=== PATIENT | male | born 2000 | race Caucasian/White ===

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

== ENCOUNTER 2018-01-03 09:26 | Emergency (ER) | payer OTHER ==
[~2018-01-03] VITALS: Ht 180.3 cm; Wt 140.6 kg
[~2018-01-03 09:26] MED LIST: ALBU0.0912 INH
[2018-01-03 09:28] VITALS: BP 144/91
--- NOTE | 2018-01-03 09:35 | NUR ---
PT AMB TO [facility].
--- NOTE | 2018-01-03 09:36 | NUR ---
17/M BIB MOTHER WITH C/O RT THIGH PAIN WHEN ONLY WALKING 8/10 NONE RADIATING x 4 DAYS. DENIES TRAUMA.HX: NONE. MEDS: OTC TYLENOL @ LAST NIGHT. SKIN IS PINK/WARM/DRY; AAOX4 WITH EVEN AND STEADY GAIT; LUNGS CLEAR BL; HR EVEN AND REGULAR; PT DENIES ANY FEVER, CP, SOB, OR COUGH AT THIS TIME; PATIENT STATES PAIN OF 0/10 AT THIS TIME.
--- NOTE | 2018-01-03 10:01 | NUR ---
Patient being evaluated by DR LAMB at bedside.
[2018-01-03] MEDS ORDERED: KETOROLAC 60 MG/2 ML VIAL IM ONE (10:10)
--- NOTE | 2018-01-03 10:18 | NUR ---
PT TAKEN TO [facility]IA W/C ACCOMPANIED BY [employer].
--- NOTE | 2018-01-03 10:54 | NUR ---
PT RETURNED FROM [facility] VIA W/C ACCOMPANIED BY [employer].
--- NOTE | 2018-01-03 11:00 | NUR ---
Patient being reevaluated by DR LAMB at bedside.
[2018-01-03 11:07] VITALS: BP 115/69
--- NOTE | 2018-01-03 11:07 | NUR ---
Patient discharged with v/s stable. Written and verbal after care instructions given and explained. Patient alert, oriented and verbalized understanding of instructions. Ambulatory with steady gait. All questions addressed prior to discharge. ID band removed. Patient advised to follow up with PMD. Rx of VOLTAREN & COLACE given. Patient educated on indication of medication including possible reaction and side effects. Opportunity to ask questions provided and answered.
== END 2018-01-03 11:07 | disposition home or self-care (01) ==
LOC: MED 09:26
DX: M25.551 Pain in right hip (principal); K59.00 Constipation, unspecified; J45.909 Unspecified asthma, uncomplicated
CPT/HCPCS: 72100; 73502; 96372; 99284; J1885